=== PATIENT | male | born 1980 | race Asian ===

== ENCOUNTER 2022-08-31 01:34 | Day surgery (SDC) | payer BC, SELFPAY ==
[2022-08-24 10:29] VITALS: BMI 27.3
--- NOTE | 2022-08-24 10:37 | PC.NURSE ---
Report to the Outpatient Waiting Room, entrance under the green pavilion located off [facility], at time 0630 on date 08/31/22. OR Time: 0830. Time changes happen often and if your time is changed the preop area will call you the afternoon before. - You and your visitor will be asked to self-screen and do not enter if you have any COVID symptoms. - Only one visitor and NO children visitors are allowed at this time. - The patient visitor is requested to leave or wait in car when not with patient due to restrictions. - A mask is required within the hospital. Patients may have clear liquids (water, carbonated beverages, clear teas, apple juice) until 3 hours prior to surgery with a maximum of 20 ounces. - No food from midnight until time of surgery Take the following medications with a SIP of water the morning of surgery: NONE Medications to discontinue per physician: N/A Date to take last dose: N/A Please no make-up, nail swiss, hairspray, perfume, deodorant, or body powder the day of surgery. No jewelry (including any body piercings) or valuables the day of surgery, leave them at home. Please take a shower or bath the night before, or the morning of, surgery with an antibacterial soap. Wear comfortable, loose fitting clothing. - Jewelry must be removed prior to entering the operating room. Rings and piercings that are not removed may be cut off. - The hospital will not accept responsibility for valuables. - Please leave all valuables, including medications, at home the day of surgery. If you are going home after surgery, a licensed route driver [employer] must drive you home. - NO public transportation without another adult. - We recommend that an adult stay with you for 24 hours following discharge. - We also recommend that you do not drive, make important decision, drink alcoholic beverages, or take any drugs that were not prescribed by your health care provider for at least 24 hours after your discharge time. Follow any additional instructions given to you from your surgeon. If you or anyone in your household have experienced Covid symptoms in the past week, please notify your surgeon or the nurse liaison at the phone number below for possible testing. Telephone instructions given to PT - ODALIS CHAVEZ and asked if any additional questions and then verbalized understanding. Patient advised to call surgeon office or pre surgery nurse liaison [phone] if any additional questions.
--- NOTE | 2022-08-30 13:50 | P.PNAN_ITS ---
Anes - Initial Pre Proc Eval Procedure: Operation Date: 08/31/22 08:30 Proposed Procedures p Circumcision, - Ezequiel Toussaint MD s Cystoscopy, Possible Urethral Dilatation - Ezequiel Toussaint MD Date/Time: 08/30/22 13:50 Surgeon: Ezequiel Toussaint MD Pre Op Diagnosis: phimosis Patient Data Age: 42 Gender: M Height: 1.7 m Weight: 79.38 kg Allergies Allergy/AdvReac Type Severity Reaction Status Date / Time No Known Allergies Allergy Verified 08/31/22 06:57 Home Medications Medication Instructions Recorded Confirmed Type montelukast 10 mg tablet 10 mg PO DAILY 08/24/22 08/31/22 History Patient hx anesthesia problems: none Family hx anesthesia problems: none Results Review: All pre-operative results and documents have been reviewed as part of the pre- operative evaluation. [facility] Past Medical History Medical History (Updated 08/30/22 @ 13:51 by Austyn Jacobo MD) Overweight (BMI 25.0-29.9) Phimosis Social History Social History Smoking status: Never smoker Alcohol intake: current Drinks per week: 4 Substance use: never Substance use type: does not use Living arrangements: with family Spiritual care concerns: No Anes - Eval Final PreProcedure Day of Procedure 08/30/22 13:50 Patient weight: overweight Heart: regular rate and rhythm Lungs: clear to auscultation and normal air movement Airway: Mallampati scale class II Neurological: alert and oriented Last oral intake: >/= 8 hours ASA classification: II Emergent: no Anesthetic plan: proceed Anesthesia type and monitoring: general GIVS and LMA Results Review: All pre-operative results and documents have been reviewed as part of the pre-operative evaluation. Informed Consent: The patient's anesthetic plan and its attendant risks and benefits were discussed with the patient/family/POA. Questions were solicited and answers provided to the satisfaction of the patient/family/POA.
[2022-08-31] VITALS (8 sets, daily range): BP systolic 103–118; BP diastolic 49–76; PULSE 48–59; RESP 11–20; TEMP 36–36.1; O2SAT 99–100
--- NOTE | 2022-08-31 06:22 | WPDHPUPDATE1 ---
History and Physical Update Update Date/Time: 08/31/22 06:22 History and Physical has been reviewed, including an updated exam of the patient. There are NO changes in the patient's condition. Risks, benefits, and alternatives have been discussed and questions answered. Patient agrees to proceed with procedure.
[2022-08-31] MEDS: LACTATED RINGERS 1,000 ML 30 ML IV CONT (07:09)
[2022-08-31] MEDS: ceFAZolin 2 GM/D5W 50 ML 2 GM/50 ML BAG IVPB (08:20)
[2022-08-31] MEDS: NEOMYCIN/POLYMYXIN/BACITRACIN OINTMENT 15 GM TUBE 1 APPLIC TOPICAL (09:08)
--- NOTE | 2022-08-31 09:13 | P.OP_ITS ---
Procedure Note - Detailed Date of Procedure 08/31/22 Pre-op Diagnosis Phimosis Post-op Diagnosis Other (Phimosis, meatal stenosis) Procedure Performed Circumcision; cystoscopy with urethral dilatation Surgeon Ezequiel Toussaint MD Description of Procedure The patient is brought to the operative suite areas prepped and draped in a rout ine sterile fashion while in a supine position. The lines of circumcision are outlined using a sterile marking pen. 2 circumferential circumcising incisions were made and carried down to Colle's fascia. The penile foreskin is circumferentially excised. Hemostasis is obtained with electric cautery. The edges of the penile skin reapproximated using a combination of running and interrupted 4-0 chromic. A penile block is administered at the base of the penis with 0.25% bupivacaine. The patient was taken to the recovery room in good condition. EBL was approximately 10cc. I then performed cystoscopy with a 16 F flexible cystoscope. He has stricture at the meatus which required dilatation from 16-28 F. cystoscopy then revealed no additional you urethral strictures and a normal bladder. There was no intravesical foreign body or neoplasm in the mucosa was without hyperemia. He had a single orthotopic ureteral orifice bilaterally. Drains No Packing No Pathology Yes Complications No immediate complications Condition Stable Disposition PACU
== END 2022-08-31 10:55 | disposition home or self-care (01) ==
PROVIDERS: PCP Family Medicine; Visit Provider Urology
PROC: (CPT 54161; principal; 2022-08-31 08:30)
PROC: 0T7D8ZZ Dilation of Urethra, Via Natural or Artificial Opening Endoscopic (ICD-10-PCS; CPT 52281; 2022-08-31 08:30)
DX: N47.1 Phimosis (principal); N35.911 Unspecified urethral stricture, male, meatal
CPT/HCPCS: 54161; 52281; 88304; A9270; J0690; J1100; J2250; J2405; J2704; J3010; J7030; J7120

== ENCOUNTER 2022-10-09 14:59 | Emergency (ER) | payer BC, SELFPAY ==
[2022-10-09 15:11] VITALS: BP 140/86; PULSE 104; RESP 16; TEMP 38.1; O2SAT 99
--- NOTE | 2022-10-09 15:12 | ED.URI ---
HPI - URI/Sore Throat General Chief Complaint: Upper Respiratory Infection Stated Complaint: Fever,Running Nose Time Seen by Provider: 10/09/22 15:50 Source: patient and RN notes reviewed Mode of arrival: ambulatory Limitations: no limitations History of Present Illness HPI Narrative: 42-year-old male presents with concern for fever, nasal congestion rhinorrhea, chills, body aches this started yesterday. Reports he has been using paracetamol and has taken 2 leftover azithromycin. He denies cough, shortness of breath, nausea, vomiting, diarrhea. MD elicited complaint: cough and sore throat Related Data Home Medications Medication Instructions Recorded Confirmed montelukast 10 mg tablet 10 mg PO DAILY 08/24/22 10/09/22 Allergies Allergy/AdvReac Type Severity Reaction Status Date / Time No Known Allergies Allergy Verified 08/31/22 06:57 Review of Systems Review of Systems: CONSTITUTIONAL: Reports malaise, chills, fever. EYES: Denies visual changes, redness, or discharge. ENT: Reports rhinorrhea, congestion. Denies sinus pain, otalgia and sore throat. CARDIOVASCULAR: Denies chest pain, palpitations, or edema. RESPIRATORY: Denies cough. Denies dyspnea. GASTROINTESTINAL: Denies abdominal pain, nausea, vomiting, diarrhea SKIN: Denies rash or itching. MUSCULOSKELETAL: Reports myalgia. NEUROLOGIC: Reports headache. All systems reviewed & are unremarkable except as noted in HPI and below PMFSH Past Medical History Medical History (Updated 10/09/22 @ 15:57 by Gay Brantley NP) Overweight (BMI 25.0-29.9) Phimosis Social History Social History Smoking status: Never smoker Alcohol intake: current Drinks per week: 4 Substance use: never Substance use type: does not use Spiritual care concerns: No Comments At time of signature, agree with nursing past medical, surgical, social and family history. There is no relevant family history pertinent to the presenting complaint Exam Narrative: GENERAL: Nontoxic-appearing and in no acute distress. HEAD: Normocephalic EYES: PERRLA, conjunctivae clear ENT: Nares clear, clear discharge. Mucous membranes moist. TM pearly wilhelm with dull light reflex bilaterally; no tragal tenderness. Oropharynx not erythematous without lesions. Tonsils not enlarged and without exudate, no drooling, no hoarseness, no trismus, uvula midline. NECK: Supple. No lymphadenopathy CHEST: Clear to auscultation, breath sounds equal. No wheezing, rhonchi, rales, or stridor. No respiratory distress, speaks in full sentences. HEART: Regular rate and rhythm. No murmur heard. SKIN: Warm, dry, no rash. NEURO: Alert and oriented x3. PSYCH: Normal mood and affect Course Course Emergency Course: Patient is aware of diagnosis, understands and agrees to treatment plan. Anticipatory guidance given. Patient agrees to follow-up as directed and is aware of reasons to seek care at the emergency department. Portions of this record may have been created with voice recognition software Level of Care: Express Care Visit Vital Signs Vital signs: Reviewed. MDM - URI/Sore Throat MDM Narrative Medical decision making narrative: Differential diagnosis considered: Zayas virus, strep pharyngitis, allergic rhinitis, upper respiratory tract infection, sinusitis, rhinosinusitis, nasopharyngitis. viral pharyngitis, otitis media, otitis externa, pneumonia, bronchitis, viral cough syndrome, viral syndrome, and influenza. Exam findings show no acute concerns or changes; patient is non-toxic appearing and is in no distress. Patient is appropriate for outpatient treatment and follow-up. Lab Data Attestation: I reviewed the patient's lab results. Critical Care Time Critical Care Time Critical Care Time: No Discharge Plan Discharge Clinical Impression: Influenza A Patient Disposition: Home, Self-Care Condition: Stable Additional Instructions: -Antibiotics do not care virus and are not recommen
== END 2022-10-09 16:05 | disposition home or self-care (01) ==
PROVIDERS: Emergency Provider Nurse Practitioner; PCP Family Medicine
DX: J10.1 Influenza due to other identified influenza virus with other respiratory manifestations (principal); Z20.822 Contact with and (suspected) exposure to COVID-19
CPT/HCPCS: 87426; 87804; 99213; C9803; G0463

== ENCOUNTER 2024-06-23 01:39 | Day surgery (SDC) | payer BC, SELFPAY ==
[2024-06-17 15:16] VITALS: BMI 28.4
--- NOTE | 2024-06-17 15:23 | PC.NURSE ---
Report to the Outpatient Waiting Room, entrance under the green pavilion located off [facility], at time _1000_ on date _[id number]_. Planned Procedure Time: _1200_. Time changes happen often and if your time is changed the preop area will call you the afternoon before. - You and your visitor will be asked to self-screen and do not enter if you have any COVID symptoms. - A mask is optional within the hospital at this time. Patients may have clear liquids (water, carbonated beverages, clear teas, apple juice) until 3 hours prior to surgery with a maximum of 20 ounces. - No food from midnight until time of surgery Take the following medications with a SIP of water the morning of surgery: ___None DO NOT STOP ANY OF YOUR OTHER PRESCRIPTION MEDICATIONS PRIOR TO SURGERY ?EXCEPT THE FOLLOWING Medications to discontinue per physician Vitamin D3 Date to take last djnx____[id number] Please no make-up, nail macedonian, hairspray, perfume, deodorant, or body powder the day of surgery. No jewelry (including any body piercings) or valuables the day of surgery, leave them at home. Please take a shower or bath the night before, or the morning of, surgery with an antibacterial soap. Wear comfortable, loose fitting clothing. - Jewelry must be removed prior to entering the operating room. Rings and piercings that are not removed may be cut off. - The hospital will not accept responsibility for valuables. - Please leave all valuables, including medications, at home the day of surgery. If you are going home after surgery, a licensed seasonal delivery driver must drive you home. - NO public transportation without another adult if you receive anesthesia. - We recommend that an adult stay with you for 24 hours following discharge. - We also recommend that you do not drive, make important decision, drink alcoholic beverages, or take any drugs that were not prescribed by your health care provider for at least 24 hours after your discharge time. ollow any additional instructions given to you from your surgeon. If you or anyone in your household have experienced Covid symptoms in the past week, please notify your surgeon or the nurse liaison at the phone number below for possible testing. Telephone instructions given to __Dahra/wife___and asked if any additional questions and then verbalized understanding. Patient advised to call surgeon office or pre surgery nurse liaison [phone] if any additional questions.
[2024-06-23] MEDS: LACTATED RINGERS 1,000 ML 30 ML IV CONT (10:30)
[2024-06-23 10:45] VITALS: BP 108/78; PULSE 58; RESP 16; TEMP 36.6; O2SAT 100
--- NOTE | 2024-06-23 11:22 | WPDANESEPPF ---
Anes - Initial Pre Proc Eval Procedure: Operation Date: 06/23/24 12:00 Proposed Procedures p Excision of Back Masses, Excision of Left Chest Wall Mass - Mehul German DO Date/Time: 06/23/24 11:22 Surgeon: Mehul German DO Pre Op Diagnosis: 6 cm, 3.5 cm Back Masses X 2, Patient Data Age: 43 Gender: M Height: 1.68 m Weight: 79.9 kg Last Vital Signs Temp 97.8 F 06/23/24 10:45 Pulse 58 L 06/23/24 10:45 Resp 16 06/23/24 10:45 BP 108/78 06/23/24 10:45 Pulse Ox 100 06/23/24 10:45 O2 Del Method Room Air 06/23/24 10:45 Allergies Allergy/AdvReac Type Severity Reaction Status Date / Time No Known Allergies Allergy Verified 06/23/24 10:48 Home Medications Medication Instructions Recorded Confirmed Type cholecalciferol (vitamin D3) 10 10 mcg PO DAILY 04/04/24 06/23/24 History mcg (400 unit) capsule atorvastatin 10 mg tablet 10 mg PO HS 06/17/24 06/23/24 History Patient hx anesthesia problems: none Family hx anesthesia problems: none Results Review: All pre-operative results and documents have been reviewed as part of the pre-operative evaluation. [facility] Past Medical History Medical History Overweight (BMI 25.0-29.9) Phimosis Family History Family History (Updated 04/04/24 @ 09:30 by Soila Cummins MA) Father Hypertension Cancer Mother Diabetes mellitus Sibling Hypertension Diabetes mellitus Social History Social History (Updated 04/04/24 @ 09:28 by Soila Cummins MA) Smoking status: Never smoker Alcohol intake: current Drinks per week: 8 Substance use: never Substance use type: does not use Do You Feel Safe in your Home?: Yes Lack of Transportation: No Lack of Food: Never True Current Housing: I Have Housing Concerned About Future Housing: No Difficulty Paying Gas/Electric Bills: No Difficulty Paying for Meds: No Currently Unemployed: No Education: Bachelor's Degree Living arrangements: with family Spiritual care concerns: No Anes - Eval Final PreProcedure Day of Procedure 06/23/24 11:22 Patient weight: normal Heart: regular rate and rhythm Lungs: clear to auscultation Airway: Mallampati scale class II Neurological: alert and oriented Last oral intake: >/= 8 hours ASA classification: II Emergent: no Anesthetic plan: proceed Anesthesia type and monitoring: general GIVS and standard monitoring Results Review: All pre-operative results and documents have been reviewed as part of the pre-operative evaluation. Informed Consent: The patient's anesthetic plan and its attendant risks and benefits were discussed with the patient/family/POA. Questions were solicited and answers provided to the satisfaction of the patient/family/POA.
--- NOTE | 2024-06-23 11:36 | PM.IMHP ---
H&P: HPI History of Present Illness Date/Time: 06/23/24 11:36 Chief Complaint: multiple subcutaneous masses Narrative: 43 yo man presents for excision of multiple subcutaneous masses. He reports no significant changes since last seen in office. Review of Systems Review of Systems: All systems reviewed & are unremarkable except as noted in HPI and below Constitutional: Constitutional: Denies chills, Denies fever(s), Denies headache(s) and Denies weight loss Eyes: Eyes: Denies change in vision ENT: Denies dizziness, Denies headache(s), Denies neck mass and Denies throat swelling Cardiovascular: Cardiovascular: Denies chest pain, Denies lightheadedness and Denies dyspnea Respiratory: Respiratory: Denies cough, Denies dyspnea and Denies wheezing Gastrointestinal: Gastrointestinal: Denies abdominal pain, Denies change in bowel habits, Denies nausea and Denies vomiting Genitourinary: Genitourinary: Denies hematuria and Denies dysuria Musculoskeletal: Musculoskeletal: Reports as per HPI Integumentary/Breasts: Skin/Breast: Reports as per HPI Neurologic: Denies dizziness and Denies headache(s) Allergic/Immunologic: Allergic/Immunologic: Denies throat swelling and Denies wheezing [facility] Past Medical History Medical History Overweight (BMI 25.0-29.9) Phimosis Family History Family History (Updated 04/04/24 @ 09:30 by Soila Cummins MA) Father Hypertension Cancer Mother Diabetes mellitus Sibling Hypertension Diabetes mellitus Social History Social History (Updated 04/04/24 @ 09:28 by Soila Cummins MA) Smoking status: Never smoker Alcohol intake: current Drinks per week: 8 Substance use: never Substance use type: does not use Do You Feel Safe in your Home?: Yes Lack of Transportation: No Lack of Food: Never True Current Housing: I Have Housing Concerned About Future Housing: No Difficulty Paying Gas/Electric Bills: No Difficulty Paying for Meds: No Currently Unemployed: No Education: Bachelor's Degree Living arrangements: with family Spiritual care concerns: No Meds Home Medications and Allergies Home Medications Medication Instructions Recorded Confirmed Type cholecalciferol (vitamin D3) 10 10 mcg PO DAILY 04/04/24 06/23/24 History mcg (400 unit) capsule atorvastatin 10 mg tablet 10 mg PO HS 06/17/24 06/23/24 History Allergies Allergy/AdvReac Type Severity Reaction Status Date / Time No Known Allergies Allergy Verified 06/23/24 10:48 Vital Signs Vital Signs - 24 hr 06/23/24 10:45 Temperature 36.6 C Pulse Rate 58 L Respiratory Rate 16 Blood Pressure 108/78 Pulse Oximetry 100 Oxygen Delivery Room Air Exam Const: General: no acute distress and alert Orientation/consciousness: patient oriented x3 HENMT: Head: normocephalic and atraumatic Ears: hearing grossly normal bilaterally Face/Nose/Sinus: Normal nares present Mouth: Yes Normal oral and palatal mucosa present Eyes: Periorbital: periorbital findings normal Sclera: sclerae normal EOM: EOMs intact bilaterally Neck: Neck: normal visual inspection, no lymphadenopathy and trachea midline Chest: Chest palpation & inspection: normal inspection of the chest Resp: Effort & Inspection: normal respiratory effort Auscultation: clear to auscultation bilaterally Cardio: Jugular venous distension: no JVD Rate: regular rate Rhythm: regular rhythm Heart sounds: S1 normal heart sound present and S2 normal heart sound present Peripheral pulses: Peripheral pulses 2+ throughout GI: Inspection: normal to inspection GI Palp: Yes Soft to palpation, No Tenderness to palpation present (GI), No Guarding due to palpation present (GI) and No Rebound tenderness present Percussion: Yes normal to percussion Auscultation: normal bowel sounds : General: Yes no CVA tenderness Back/Spine/Pelvis: Back: no CVA tenderness Skin:
--- NOTE | 2024-06-23 11:39 | WPDHPUPDATE1 ---
History and Physical Update Update Date/Time: 06/23/24 11:39 History and Physical has been reviewed, including an updated exam of the patient. There are NO changes in the patient's condition. Risks, benefits, and alternatives have been discussed and questions answered. Patient agrees to proceed with procedure.
[2024-06-23] MEDS: LIDO 1%/EPINEPHRINE 1:100,000 20 ML VIAL 30 ML INFILTRATE (12:41)
[2024-06-23] MEDS: BACITRACIN OINTMENT 15 GM TUBE 1 APPLIC TOPICAL (13:20)
--- NOTE | 2024-06-23 13:28 | W.PM.PROC2 ---
Procedure Note - Detailed Date of Procedure 06/23/24 Pre-op Diagnosis 6 cm and 3.5 cm back mass, 1.5 cm left chest mass Post-op Diagnosis Same Procedure Performed 1. Excision of 6 cm left back mass 2. Excision of 3.5 cm right back mass 3. Excision of 1.5 cm left chest mass Surgeon Mehul German, DO Anesthesia MAC and Local (1% lidocaine with epinephrine) Indications This is a 43-year-old man who presented with multiple masses on his back and chest. These were small and soft, but over time have increased in size. They are also causing some discomfort. On exam the masses were soft and mobile and likely lipomas. Discussions were made with the patient of treatment options and decision was made to proceed with excision of 6 cm and 3.5 cm back mass is and excision of 1.5 cm left chest mass. Findings All 3 masses were excised with separate incisions. The left back mass measured about 6 cm and right back mass measured 3.5 cm. The left chest mass measured 1.5 cm. 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 They were sent to the lab for pathology. Description of Procedure Procedure as well as risks, benefits, and alternatives were discussed with the patient. Written consent was obtained and placed in chart prior to procedure. Patient was brought back to surgical suite. He was placed in left lateral decubitus position on the operating table. Time-out was done to confirm patient and procedure. IV sedation was then administered by the anesthesia department. His back area was prepped and draped in sterile fashion using chlorhexidine prep. 1% lidocaine with epinephrine was infiltrated locally around each of the masses. A 6 cm transverse incision was made over the left upper back mass using a 15 blade scalpel. Electrocautery was used for hemostasis and for careful dissection around the mass. The mass was completely excised intact and sent to the lab for pathology. The wound bed was inspected and hemostasis appeared adequate. The skin edges were reapproximated using 3-0 nylon simple interrupted sutures. A 3.5 cm transverse incision was then made over the right upper back mass using a 15 blade scalpel. Electrocautery was used for hemostasis and for careful dissection around the mass. The mass was completely excised intact and sent to the lab for pathology. The wound bed was then inspected and hemostasis appeared adequate. The skin edges were reapproximated using 3-0 nylon simple interrupted sutures. Bacitracin ointment, 4 x 4 gauze, and Medipore tape were applied over these 2 incisions. The patient was then repositioned into supine position. His left chest mass was prepped and draped in sterile fashion using chlorhexidine prep. 1% lidocaine with epinephrine was infiltrated locally around the mass. A 2 cm transverse incision was made over the mass using a 15 blade scalpel. Electrocautery was used for hemostasis and for careful dissection around the mass. The mass was completely excised intact and sent to the lab for pathology. The wound bed was then inspected and hemostasis appeared adequate. The skin edges were reapproximated using 4-0 Monocryl running subcuticular suture and Exofin glue was applied on top. The patient was then awakened from anesthesia and transferred to recovery. Estimated Blood Loss 5 Pathology Yes (Left back mass, right back mass, left chest mass) Complications No immediate complications Condition Stable Disposition Same day [facility] Billing Surgery - Charge Forward: Surgery Billing
[2024-06-23 13:35] VITALS: BP 129/68; PULSE 63; RESP 12; O2SAT 100
[2024-06-23 14:01] VITALS: BP 126/71; PULSE 65; RESP 16; O2SAT 100
== END 2024-06-23 14:10 | disposition home or self-care (01) ==
PROVIDERS: PCP Family Medicine; Visit Provider Surgery
PROC: (CPT 21931; principal; 2024-06-23 12:00)
DX: D17.1 Benign lipomatous neoplasm of skin and subcutaneous tissue of trunk (principal); Z80.9 Family history of malignant neoplasm, unspecified
CPT/HCPCS: 21931 ×2; 21555; 88304; A9270; J2250; J2704; J3010; J7120